=== PATIENT | male | born 1945 | race Caucasian/White ===

== ENCOUNTER → 2017-02-08 | Outpatient (REF) | payer MEDICARE, OTHER | LOC: M LAB REF 13:25 | PROVIDERS: ATTEND Nurse Practitioner Adult Health | DX: R42 Dizziness and giddiness (principal); Z79.899 Other long term (current) drug therapy ==

== ENCOUNTER → 2018-02-01 | Outpatient (REF) | payer MEDICARE, OTHER ==
[2018-02-01 13:05] LABS: TOTAL PROTEIN,RANDOM URINE 15.9 MG/DL (0.0-12.0)
[2018-02-01 13:06] LABS: TOTAL PROTEIN 7.6 GM/DL (6.4-8.2)
[2018-02-04 12:22] LABS: ALBUMIN 4.54 GM/DL (3.29-5.55); ALBUMIN % 59.8 % (55.8-66.1); ALPHA-1-GLOBULIN % 3.5 % (2.9-4.9); ALPHA-1-GLOBULINS 0.27 GM/DL (0.17-0.41); ALPHA-2-GLOBULINS 0.73 GM/DL (0.42-0.99); ALPHA-2-GLOBULINS % 9.6 % (7.1-11.8); BETA-1-GLOBULINS 0.44 GM/DL (0.28-0.60); BETA-1-GLOBULINS % 5.8 % (4.7-7.2); BETA-2-GLOBULINS 0.42 GM/DL (0.19-0.55); BETA-2-GLOBULINS % 5.5 % (3.2-6.5); GAMMA GLOBULIN % 15.8 % (11.1-18.8)
== END ==
LOC: M LAB REF 12:16
DX: M51.34 Other intervertebral disc degeneration, thoracic region (principal)
CPT/HCPCS: 84165

== ENCOUNTER → 2018-04-15 | Outpatient (CLI) | payer MEDICARE, BC, OTHER ==
[~2018-04-15] MED LIST: GASTROGRAFIN SOLUTION 30ML (Q9963) As Ordered; ISOVUE-370 76% 100ML VIAL (Q9967) As Ordered
== END ==
LOC: M RAD 12:49
DX: K44.9 Diaphragmatic hernia without obstruction or gangrene (principal); K86.2 Cyst of pancreas; K57.10 Diverticulosis of small intestine without perforation or abscess without bleeding; R10.814 Left lower quadrant abdominal tenderness; R19.7 Diarrhea, unspecified; R11.10 Vomiting, unspecified

== ENCOUNTER → 2018-04-15 | Outpatient (CLI) | payer MEDICARE, BC, OTHER ==
[2018-04-15 14:23] LABS: BASO % 0.2 % (0.0-1.0); EOS # 0.1 10^3/uL (0.0-0.50); EOS % 0.7 % (0.0-3.0); HEMATOCRIT 44.3 % (42.0-52.0); HEMOGLOBIN 14.8 g/dl (13.5-17.5); IMMATURE GRANULOCYTE % 0.4 % (0-3.0); LYMPH # 1.9 10^3/uL (1.5-4.5); LYMPH % 18.2 % (24.0-44.0); MEAN CORPUSCULAR HEMOGLOBIN 30.7 pg (27.0-33.0); MEAN CORPUSCULAR HGB CONC 33.4 g/dl (32.0-36.5); MEAN CORPUSCULAR VOLUME 91.9 fl (80.0-96.0); MONO # 1.5 10^3/uL (0.0-0.8); MONO % 14.4 % (0.0-5.0); NEUTROPHILS # 6.9 10^3/uL (1.8-7.7); NEUTROPHILS % 66.1 % (36.0-66.0); PLATELET COUNT, AUTOMATED 141 10^3/uL (150-450); RED BLOOD COUNT 4.82 10^6/uL (4.30-6.10); RED CELL DISTRIBUTION WIDTH 12.8 % (11.5-14.5); WHITE BLOOD COUNT 10.4 10^3/uL (4.0-10.0)
[2018-04-15 14:38] LABS: ALBUMIN 3.8 GM/DL (3.2-5.2); ALBUMIN/GLOBULIN RATIO 1.03 (1.00-1.93); ALKALINE PHOSPHATASE 79 U/L (45-117); ALT/SGPT 21 U/L (12-78); ANION GAP 9 MEQ/L (8-16); AST/SGOT 20 U/L (7-37); BILIRUBIN,TOTAL 0.4 MG/DL (0.2-1.0); BLOOD UREA NITROGEN 18 MG/DL (7-18); CALCIUM LEVEL 8.9 MG/DL (8.8-10.2); CARBON DIOXIDE LEVEL 23 MEQ/L (21-32); CHLORIDE LEVEL 107 MEQ/L (98-107); CREATININE FOR GFR 1.24 MG/DL (0.70-1.30); GLOMERULAR FILTRATION RATE > 60.0 (>42); GLUCOSE, FASTING 106 MG/DL (70-100); POTASSIUM SERUM 4.8 MEQ/L (3.5-5.1); SODIUM LEVEL 139 MEQ/L (136-145); TOTAL PROTEIN 7.5 GM/DL (6.4-8.2)
== END ==
LOC: M WUC 12:02
DX: K44.9 Diaphragmatic hernia without obstruction or gangrene (principal); K86.2 Cyst of pancreas; K57.10 Diverticulosis of small intestine without perforation or abscess without bleeding; R10.814 Left lower quadrant abdominal tenderness; R19.7 Diarrhea, unspecified; R11.10 Vomiting, unspecified
CPT/HCPCS: Q9963

== ENCOUNTER → 2018-04-17 | Outpatient (REF) | payer MEDICARE, OTHER | LOC: M LAB REF 09:39 | DX: R19.7 Diarrhea, unspecified (principal) | CPT/HCPCS: 87507 ==